=== PATIENT | female | born 1995 | race Caucasian/White ===

== ENCOUNTER 2017-05-30 14:56 | Emergency (ER) | payer OTHER ==
[2017-05-30 15:07] VITALS: BP 126/72; PULSE 110; TEMP 100.1; BMI 24.7
[2017-05-30] MEDS ORDERED: PENICILLIN G BENZATHINE 1,200,000 UNIT/2 ML PFS IM ONE (15:48)
--- NOTE | 2017-05-30 15:49 | PDOC ---
History of Present Illness - General History Source: Patient Exam Limitations: No Limitations - History of Present Illness Initial Comments: 05/30/17 15:49 Patient is a 21 year old female with no significant past medical history, who presents with a sore throat and subjective fever since last night. Pt reports she has been unable to tolerate solids or fluids secondary to sore throat. She reports an intermittent fever. She denies any cough, chills, or ear pain. Pt reports shes taken tylenol and drank hot tea with no relief. She denies any recent travel or sick contacts. Allergies: None reported Social History: Non smoker. No ETOH or drug use. <Adrian Stark - Last Filed: 05/30/17 16:22> - General History Source: Patient, Parent(s) <Vivien Choi - Last Filed: 05/30/17 16:40> - General Chief Complaint: Sore Throat Stated Complaint: SORE THROAT Time Seen by Provider: 05/30/17 15:13 Past History <Adrian Stark - Last Filed: 05/30/17 16:22> - Travel Traveled outside of the country in the last 30 days: No Close contact w/someone who was outside of country & ill: No - Past Medical History Other medical history: denies - Psycho/Social/Smoking Cessation Hx Anxiety: No Suicidal Ideation: No Smoking History: Never smoked Information on smoking cessation initiated: No Hx Alcohol Use: No Drug/Substance Use Hx: No Substance Use Type: None <Vivien Choi - Last Filed: 05/30/17 16:40> - Past Medical History Allergies/Adverse Reactions: Allergies Allergy/AdvReac Type Severity Reaction Status Date / Time No Known Allergies Allergy Verified 05/30/17 15:06 Home Medications: Ambulatory Orders NK [No Known Home Medication] 05/30/17 Review of Systems - Review of Systems Able to Perform ROS?: Yes Constitutional: Yes: Symptoms Reported, See HPI, Fever, Loss of Appetite. No: Chills, Diaphoresis, Night Sweats, Weakness HEENTM: Yes: Symptoms Reported, See HPI, Throat Pain, Throat Swelling, Difficulty Swallowing. No: Ear Pain Respiratory: Yes: Symptoms reported, See HPI. No: Cough, Shortness of Breath All Other Systems: Reviewed and Negative <Adrian Stark - Last Filed: 05/30/17 16:22> - Review of Systems Able to Perform ROS?: Yes Is the patient limited Mongolian proficient: Yes Constitutional: Yes: Symptoms Reported HEENTM: Yes: Symptoms Reported, See HPI, Throat Pain, Throat Swelling, Difficulty Swallowing Respiratory: Yes: See HPI. No: Symptoms reported, Cough, Wheezing Cardiac (ROS): No: Symptoms Reported ABD/GI: Yes: See HPI. No: Symptoms Reported Musculoskeletal: Yes: Symptoms Reported, See HPI, Muscle Weakness All Other Systems: Reviewed and Negative <Vivien Choi - Last Filed: 05/30/17 16:40> *Physical Exam - Vital Signs Last Vital Signs Temp Pulse Resp BP Pulse Ox 100.1 F H 110 H 18 126/72 100 05/30/17 15:05 05/30/17 15:05 05/30/17 15:05/30/17 15:05 05/30/17 15:05 - Physical Exam General Appearance: Yes: Nourished, Appropriately Dressed. No: Apparent Distress HEENT: positive: EOMI, KIM, Normal Voice, TMs Normal, Pharyngeal Erythema, Tonsillar Exudate, Tonsillar Erythema. negative: Pale Conjunctivae, Nasal Congestion, Rhinorrhea, Sinus Tenderness, TM Erythema Neck: positive: Lymphadenopathy (R), Lymphadenopathy (L) Respiratory/Chest: positive: Lungs Clear, Normal Breath Sounds. negative: Chest Tender, Respiratory Distress Cardiovascular: positive: Regular Rhythm, Regular Rate Neurologic: positive: critical care physician II-XII NML intact, Fully Oriented, Alert, Normal Mood/ Affect <Adrian Stark - Last Filed: 05/30/17 16:22> - Vital Signs Last Vital Signs Temp Pulse Resp BP Pulse Ox 100.1 F H 110 H 18 126/72 100 05/30/17 15:05 05/30/17 15:05 05/30/17 15:05/30/17 15:05/30/17 15:05 - Physical Exam General Appearance: Yes: Nourished, Appropriately Dressed, Apparent Distress, Mild Distress <Vivien Choi - Last Filed: 05/30/17 16:40> Medical Decision Making - Medical Decision Making 05/30/17 16:03 The scribe's documentation has been prepared under my direction and personally reviewed by me in its entirety. I confirm that the note above accurately reflects all work, treatment, procedures, and medical decision making performed by me. Pharyngitis, we'll treat with Bicillin 1.2 million units IM, observed for 30 minutes with no reaction <Vivien Choi - Last Filed: 05/30/17 16:40> *DC/Admit/Observation/Transfer - Attestations Scribe Attestion: 05/30/17 15:53 Documentation prepared by Adrian Stark, acting as medical staff coordinator for Vivien Choi, [email or web address]. <Adrian Stark - Last Filed: 05/30/17 16:22> - Discharge Dispostion Admit: No <Vivien Choi - Last Filed: 05/30/17 16:40> Diagnosis at time of Disposition: Pharyngitis Qualifiers: Pharyngitis/tonsillitis etiology: unspecified etiology Qualified Code(s): J02.9 - Acute pharyngitis, unspecified - Discharge Dispostion Disposition: HOME Condition at time of disposition: Stable - Referrals Referrals: Stephanie Chau [Primary Care Provider] - - Patient Instructions Printed Discharge Instructions: DI for Pharyngitis/Tonsillopharyngitis -- Adult Additional Instructions: Rest, drink lots of fluids: Teas, water, soups Eat cold things: Ice cream, ice pops, ice chips Saltwater gargles Steamy showers/seem to face break up mucus Avoid contact with others until fevers and pain resolved Lots of handwashing and good hygiene, this is contagious You have been treated with Bicillin LA 1.2 million units injection which is a one-time treatment for strep pharyngitis. You will not need to take any further antibiotics. Tylenol or Motrin for fever and pain Followup with private physician in one to 2 days as needed if not improving Return to emergency department for worsened symptoms, fevers, dehydration - Post Discharge Activity Work/School Note: Back to Work
[2017-05-30] MEDS ORDERED: PENICILLIN G BENZATHINE 2,400,000 UNIT/4 ML PFS ONE (15:50)
[2017-05-30] MEDS ORDERED: IBUPROFEN 600 MG TABLET (FP) PO ONE (16:28)
== END 2017-05-30 16:33 | disposition home or self-care (01) ==
LOC: JERFT 14:56
DX: J02.9 Acute pharyngitis, unspecified (principal)
CPT/HCPCS: 96372; 99281-25